=== PATIENT | male | born 2000 | race Caucasian/White ===

== ENCOUNTER 2018-02-21 15:48 | Emergency (ER) | payer MEDICAID ==
[~2018-02-21] VITALS: Ht 188 cm; Wt 95.5 kg
[2018-02-21 15:55] VITALS: BP 124/65; PULSE 71; RESP 16; TEMP 98; O2SAT 98
--- NOTE | 2018-02-21 17:38 | PD ---
HPI Chief Complaint: Skin Problem Time Seen by Provider: 17:26 Travel History International Travel<30 days: No Contact w/Intl Traveler<30days: No Traveled to known affect area: No History of Present Illness HPI 17-year-old male presents department with four-day history of allergic dermatitis possibly from poison kiley from working in the yard. He has been using topical Caladryl, but symptoms are worsening with worsening itch and rash. Patient denies fever, chills, or other symptoms. He has no wheezing or shortness of breath. No difficulty swallowing. Patient has no significant pain. Vision is allergic to amoxicillin [facility] Social History Alcohol Use: No Tobacco Use: No Substance Use: No Allergies-Medications (Allergen,Severity, Reaction): Coded Allergies: amoxicillin (Verified Allergy, Severe, Rash, 02/21/18) Review of Systems Except as stated in HPI: all other systems reviewed are Neg General / Constitutional: No: Fever Eyes: No: Visual changes HENT: No: Headaches Cardiovascular: No: Chest Pain or Discomfort Respiratory: No: Shortness of Breath Gastrointestinal: No: Abdominal Pain Genitourinary: No: Dysuria Musculoskeletal: No: Pain Skin: Positive Rash, Positive Itching Neurologic: No: Weakness Psychiatric: No: Depression Endocrine: No: Polydipsia Hematologic/Lymphatic: No: Easy Bruising Physical Exam Narrative GENERAL: Patient is in no obvious distress per SKIN: Warm and dry. Normal color. Normal turgor. Patient has splotchy red raised rash consistent with poison kiley/poison oak. No signs of cellulitis or abscess. HEAD: Atraumatic. Normocephalic. EYES: Pupils equal and round. No scleral icterus. No injection or drainage. ENT: No nasal bleeding or discharge. Mucous membranes pink and moist. Pharynx is clear. Airways patent NECK: Trachea midline. Supple and nontender.. CARDIOVASCULAR: Regular rate and rhythm. RESPIRATORY: No accessory muscle use. Clear to auscultation. Breath sounds equal bilaterally. GASTROINTESTINAL: Abdomen soft, non-tender, nondistended. Hepatic and splenic margins not palpable. MUSCULOSKELETAL: Extremities without clubbing, cyanosis, or edema. No obvious deformities. NEUROLOGICAL: Awake and alert. No obvious cranial nerve deficits. Motor grossly within normal limits. Five out of 5 muscle strength in the arms and legs. Normal speech. PSYCHIATRIC: Appropriate mood and affect; insight and judgment normal. Data Data Last Documented VS Vital Signs Date Time Temp Pulse Resp B/P (MAP) Pulse Ox O2 Delivery O2 Flow Rate FiO2 02/21/18 15:55 98.0 71 16 124/65 (84) 98 MDM Medical Decision Making Medical Screen Exam Complete: Yes Emergency Medical Condition: Yes Differential Diagnosis Atopic dermatitis. Poison kiley. Poison oak. Narrative Course Patient will be treated with prednisone 30 mg daily for 7 days. Patient request liquid form. Patient also given ranitidine 150 mg twice daily Patient also given diphenhydramine 25 mg every 6 hours as needed itch. Recommend continuing topical Caladryl lotion as previous. Patient to follow-up if symptoms do not improve or worsen. Diagnosis Primary Impression: Allergic dermatitis due to poison kiley Patient Instructions: General Instructions, Poison Kiley (ED) Additional Instructions: Patient will be treated with prednisone 30 mg daily for 7 days. Patient request liquid form. Patient also given ranitidine 150 mg twice daily Patient also given diphenhydramine 25 mg every 6 hours as needed itch. Recommend continuing topical Caladryl lotion as previous. Patient to follow-up if symptoms do not improve or worsen. Disposition: 01 DISCHARGE HOME Condition: Stable Huan Espinoza Feb 21, 2018 17:38
[2018-02-21] MEDS ORDERED: RANI75SY PO (17:41)
[2018-02-21] MEDS ORDERED: PRED5SOL PO (17:41)
[2018-02-21] MEDS ORDERED: DIPH12.5S PO (17:41)
== END 2018-02-21 18:27 | disposition home or self-care (01) ==
LOC: NEPD 15:48
DX: L23.7 Allergic contact dermatitis due to plants, except food (principal)
CPT/HCPCS: 99283